=== PATIENT | female | born 1990 ===

== ENCOUNTER → 2020-03-20 | Outpatient (CLI) | payer BC ==
[~2020-03-20] MED LIST: LIDOCAINE VISC 2% SOLN 15 ML UDC ONE
== END ==
LOC: WCC 13:10
PROVIDERS: ATTEND Internal Medicine Infectious Disease
DX: E11.628 Type 2 diabetes mellitus with other skin complications (principal); S31.40XA Unspecified open wound of vagina and vulva, initial encounter; L73.2 Hidradenitis suppurativa
CPT/HCPCS: 36415; 82948

== ENCOUNTER → 2020-03-27 | Outpatient (CLI) | payer BC | LOC: EDSEX → WCC 11:16 | PROVIDERS: ATTEND Internal Medicine Infectious Disease | DX: E11.628 Type 2 diabetes mellitus with other skin complications (principal); S31.40XA Unspecified open wound of vagina and vulva, initial encounter; L73.2 Hidradenitis suppurativa ==

== ENCOUNTER → 2020-05-01 | Outpatient (CLI) | payer BC ==
[~2020-05-01] MED LIST changes: +COLLAGENASE OINTMENT 30 GM TUBE ONE; -LIDOCAINE VISC 2% SOLN 15 ML UDC ONE; +LIDOCAINE/PRILOCAINE 2.5-2.5% KIT ONE; +MUPIROCIN 2% OINT 22 GM TUBE ONE
== END ==
LOC: EDSEX → WCC 10:43
PROVIDERS: ATTEND Internal Medicine Infectious Disease
DX: E11.628 Type 2 diabetes mellitus with other skin complications (principal); B96.0 Mycoplasma pneumoniae [M. pneumoniae] as the cause of diseases classified elsewhere; S31.40XA Unspecified open wound of vagina and vulva, initial encounter; B96.89 Other specified bacterial agents as the cause of diseases classified elsewhere; L73.2 Hidradenitis suppurativa
CPT/HCPCS: 36415; 82948